=== PATIENT | female | born 1940 | race Caucasian/White ===

== ENCOUNTER 2020-01-03 10:26 | Emergency (ER) | payer OTHER, MEDICARE ==
[2020-01-03 10:37] VITALS: BP 129/68; PULSE 69; TEMP 98.5; BMI 22.6
--- NOTE | 2020-01-03 10:38 | PDOC ---
Rapid Medical Evaluation Time Seen by Provider: 01/03/20 10:36 Medical Evaluation: Allergies Allergy/AdvReac Type Severity Reaction Status Date / Time erythromycin base Allergy Intermediate Verified 09/04/19 00:16 01/03/20 10:36 Pt presents for evaluation of R ankle and foot pain after twisting it at the [employer] three days ago. Exam: brace over R ankle, walking with limp Orders: x-ray Pt to proceed to the ER for further evaluation Discharge Disposition - Diagnosis Right ankle pain Qualifiers: Chronicity: acute Qualified Code(s): M25.571 - Pain in right ankle and joints of right foot - Referrals - Patient Instructions - Post Discharge Activity
--- NOTE | 2020-01-03 11:31 | PDOC ---
History of Present Illness - General Chief Complaint: Pain Stated Complaint: R/FOOT INJURY Time Seen by Provider: 01/03/20 10:36 History Source: Patient, Old Records Exam Limitations: No Limitations - History of Present Illness Initial Comments: 01/03/20 11:26 HISTORY OF PRESENT ILLNESS: 79-year-old woman with past medical history of breast CA (currently on tamoxifen), hypertension, osteoporosis, COVID-19 08/26 who presents emergency department for evaluation of right ankle pain for 2 days status post inversion injury while stepping off a curb. Patient has been ambulatory since the initial injury but is concerned that the pain is not improving and the swelling has worsened. No recent travel or sick contacts. PAST MEDICAL HISTORY: See HPI SURGICAL HISTORY: Denies ALLERGIES: Erythromycin REVIEW OF SYSTEMS General/Constitutional: Denies fever or chills. Denies weakness, weight change. HEENT: Denies change in vision. Denies ear pain or discharge. Denies sore throat. Cardiovascular: Denies chest pain or shortness of breath. Respiratory: Denies cough, wheezing, or hemoptysis. Gastrointestinal: Denies nausea, vomiting, diarrhea or constipation. Denies rectal bleeding. Genitourinary: Denies dysuria, frequency, or change in urination. Musculoskeletal: See HPI Skin and breasts: Denies rash or easy bruising. Neurologic: Denies headache, vertigo, loss of consciousness, or loss of sensation. Psychiatric: Denies depression or anxiety. Endocrine: Denies increased thirst. Denies abnormal weight change. Hematologic/Lymphatic: Denies anemia, easy bleeding, or history of blood clots. Allergic/Immunologic: Denies hives or skin allergy. Denies latex allergy. PHYSICAL EXAM General Appearance: Well-appearing, appropriately dressed. No apparent distress, no intoxication. Vascular Pulses: Dorsalis-Pedis (R): 2+, Dorsalis-Pedis (L): 2+ Gastrointestinal/Abdominal: Normal bowel sounds. Abdomen soft, non-distended. No tenderness or rebound tenderness. No organomegaly, pulsatile mass, guarding, hernia, hepatomegaly, splenomegaly. Musculoskeletal/Extremities: Swelling present over the lateral malleolus of the right ankle. Full range of motion noted. Tenderness to palpation upon palpation of the right lateral lower leg. No bony deformity or crepitus present upon palpation of the right ankle. Neurovascularly intact. Integumentary: Appropriate color, dry, warm. No cyanosis, erythema, jaundice or rash Past History - Medical History Allergies/Adverse Reactions: Allergies Allergy/AdvReac Type Severity Reaction Status Date / Time erythromycin base Allergy Intermediate Verified 09/04/19 00:16 Home Medications: Ambulatory Orders Tamoxifen Citrate 20 mg PO DAILY 01/03/20 Cancer: Yes (left breast) - Psycho-Social/Smoking History Smoking History: Never smoked Have you smoked in the past 12 months: No Information on smoking cessation initiated: No - Substance Abuse Hx (Audit-C & DAST Scrn) How often the patient has a drink containing alcohol: Never Score: In Men: 4 or > Positive; In Women: 3 or > Positive: 0 Screen Result (Pos requires Nsg. Audit-10AR): Negative *Physical Exam - Vital Signs Last Vital Signs Temp Pulse Resp BP Pulse Ox 98.5 F 69 16 129/68 99 01/03/20 10:34 01/03/20 10:34 01/03/20 10:34 01/03/20 10:34 01/03/20 10:34 Procedures - Consent Consent obtained: Verbal, From Patient - Splinting Splint Location: Right: Ankle Pre-Proc Neuro Vasc Exam: normal Hand-Made Type: orthoglass Splint Type: Yes: Sugar [place] (right), Short Leg (right) Post-Proc Neuro Vasc Exam: normal, unchanged from pre-exam Progress: 01/03/20 11:42 Patient tolerated well Medical Decision Making - Medical Decision Making 01/03/20 11:29 A/P: 79-year-old woman with right lateral ankle pain for 2 days Tender to palpation over the lateral aspect of the right lower leg extending from the ankle to the mid lower leg. No tenderness upon palpation of the knee. Full range of motion noted to the ankle although patient does report increased pain. No bony deformity, crepitus or step-off present upon palpation of the bones of the right lower leg, right ankle or right foot. Neurovascularly intact X-rays performed at rapid medical evaluation read by me: Distal fibula fracture at the styloid. Splint-see procedure note for details Discharge home with orthopedic follow-up I discussed the physical exam findings, ancillary test results and final diagnoses with the patient. I answered all of the patient's questions. The patient was satisfied with the care received and felt comfortable with the discharge plan and treatment plan. The patient will call their primary care physician within 24 hours to arrange follow-up and will return to the Emergency Department with any new, persistent or worsening symptoms. Portions of this note have been documented using voice recognition software. As a result, errors may occur in the plastic parts designer process. Effort has been made to correct all grammatical and plastic parts designer error, but some may have been missed which may produce sporadic inaccurate plastic parts designer or nonsensical phrases. Discharge - Discharge Information Problems reviewed: Yes Clinical Impression/Diagnosis: Fibula fracture Qualifiers: Encounter type: initial encounter Fibula location: lateral malleolus Fracture type: closed Fracture alignment: nondisplaced Laterality: right Qualified Code(s): S82.64XA - Nondisplaced fracture of lateral malleolus of right fibula, initial encounter for closed fracture Condition: Fair Disposition: HOME - Admission No - Follow up/Referral Referrals: Shalom Polk MD [Staff Physician] - - Patient Discharge Instructions Additional Instructions: You be given a referral for an orthopedist. Call to schedule appointment for reevaluation of your knee pain. Your emergency department visit is incomplete until you follow-up with your regular doctor. Take Tylenol 2-500 mg tablets every 6 hours as needed for pain. Take Motrin 3-200 mg tablets every 6 hours as needed for pain. These medications do not require a prescription as they are [id number]. Apply ice to affected areas to help relieve pain. Do not leave ice on for more than 20 minutes at a time. Return to the emergency department for any new or worsening symptoms. Thank you very much for choosing us to provide your emergent health care needs. - Post Discharge Activity
== END 2020-01-03 13:08 | disposition home or self-care (01) ==
LOC: JERFT 10:26
PROC: 2W3QX1Z Immobilization of Right Lower Leg using Splint (ICD-10-PCS; principal; 2020-01-03)
DX: S82.64XA Nondisplaced fracture of lateral malleolus of right fibula, initial encounter for closed fracture (principal)
CPT/HCPCS: 73610-TC-RT-FY; 73630-TC-RT-FY; 99284-25